=== PATIENT | female | born 1955 | race Caucasian/White ===

== ENCOUNTER 2017-03-01 03:30 | Emergency (ER) | payer MEDICAID ==
[~2017-03-01] VITALS: Ht 157.5 cm; Wt 148.3 kg
[2017-03-01 03:32] VITALS: BP 138/105
--- NOTE | 2017-03-01 03:41 | NUR ---
Patient ambulated to bed 3. RN evaluating patient at bedside.
--- NOTE | 2017-03-01 03:42 | NUR ---
61/F CAME IN W C/O FRONTAL HEADACHE, STATES " I FEEL LIKE IT IS A SINUS INFECTION", REPORTS LT EYE BLURRY VISION X 3 DAYS. DENIES NASAL CONGESTION, POSTNASAL DRIP. DENIES FEVER/CHILLS, N/V/D, DENIES SOB/CP, REPORTS CHRONIC COUGH. ALL LUNG SOUNDS CBTA, 20RR EVEN AND UNLABORED,, 98%RA. VSS. BLE NOTED WITH +3 PITTING EDEMA. PMH: CHF, HTN, COPD
--- NOTE | 2017-03-01 03:42 | NUR ---
Dr. Nguyen evaluating patient.
[2017-03-01] MEDS ORDERED: KETOROLAC 30 MG/ML VIAL IM ONE (03:55)
[2017-03-01] MEDS ORDERED: SUMAtriptan 25 MG TAB PO ONE (03:55)
--- NOTE | 2017-03-01 04:40 | NUR ---
Dr. Nguyen re-evaluating patient at bedside.
--- NOTE | 2017-03-01 04:58 | NUR ---
Patient discharged with v/s stable. Written and verbal after care instructions given and explained. Patient alert, oriented and verbalized understanding of instructions. Ambulatory with steady gait. All questions addressed prior to discharge. ID band removed. Patient advised to follow up with PMD. Rx of IMITREX AND ZYRTEC given. Patient educated on indication of medication including possible reaction and side effects. Opportunity to ask questions provided and answered.
[2017-03-01 05:06] VITALS: BP 148/84
== END 2017-03-01 04:58 | disposition home or self-care (01) ==
LOC: MED 03:30
DX: G43.909 Migraine, unspecified, not intractable, without status migrainosus (principal); J30.2 Other seasonal allergic rhinitis; J44.9 Chronic obstructive pulmonary disease, unspecified; I11.0 Hypertensive heart disease with heart failure; I50.9 Heart failure, unspecified
CPT/HCPCS: 96372; 99283; J1885